=== PATIENT | male | born 1955 ===

== ENCOUNTER 2019-01-20 12:35 | Observation (INO) | payer MEDICAID ==
[2019-01-20 12:35] VITALS: BMI 28.2
--- NOTE | 2019-01-20 14:17 | C.PDOC ---
History Of Present Illness 63 yr old male w/ hx of asthma, hld, family hx of CVA p/w LUE and LLE and L facial parathesia. He notes onset of symptoms 5d prior. No trauma or fall. No change in vision. NO hx of auto immune issues. No hx of migraines. He notes mild L sided headache w/ out any vision complaints. No yarsanism pain or jaw pain. No back pain or neck pain. No vision deficits. No unilateral weakness currently. No slurred speech or difficulty with words. No other complaints. Time Seen by Provider: 01/20/19 14:17 Chief Complaint (Nursing): Weakness/Neurological Deficit Past Medical History Vital Signs: Last Vital Signs Temp 98.3 F 01/20/19 12:39 Pulse 109 H 01/20/19 12:39 Resp 18 01/20/19 12:39 BP 158/91 H 01/20/19 12:39 Pulse Ox 100 01/20/19 12:39 Primary Care Provider: Clinic,Med Surg - Medical History PMH: Asthma Denies: Diabetes, Hepatitis, HIV, HTN, Seizures, Sexually Transmitted Disease - [facility] Procedures COLONOSCOPY (11/20/13) ESOPHAGOGASTRODUODENOSCOPY [EGD] W/CLOSED BIOPSY (11/20/13) INJECT/INFUSE NEC (11/21/13) NEBULIZER THERAPY (11/21/13) Family History: States: Unknown Family Hx - Social History Hx Alcohol Use: Yes Hx Substance Use: No - Immunization History Hx Tetanus Toxoid Vaccination: Yes Hx Influenza Vaccination: Yes Hx Pneumococcal Vaccination: No Review Of Systems Constitutional: Negative for: Fever, Chills, Sweats, Weakness, Malaise, Weight loss Eyes: Negative for: Pain, Vision Change, Conjunctivae Inflammation, Eyelid Inf lammation, Redness ENT: Negative for: Ear Pain, Ear Discharge, Nose Pain, Nose Discharge, Nose Congestion, Mouth Pain, Mouth Swelling, Throat Pain, Throat Swelling Cardiovascular: Negative for: Chest Pain, Palpitations, Orthopnea, Edema, Light Headedness Respiratory: Negative for: Cough, Shortness of Breath, Hemoptysis, SOB with Excertion, Pleuritic Pain Gastrointestinal: Negative for: Nausea, Vomiting, Abdominal Pain, Diarrhea, Constipation, Melena, Hematochezia Genitourinary: Negative for: Dysuria, Frequency, Incontinence, Hematuria Musculoskeletal: Negative for: Neck Pain, Shoulder Pain Neurological: Positive for: Numbness, Headache. Negative for: Weakness, Incoordination, Change in Speech, Confusion, Seizures, Altered Mental Status Psych: Negative for: Anxiety, Depression, Psychosis Physical Exam - Physical Exam Appears: Well, Non-toxic, No Acute Distress Skin: Normal Color, Warm, Dry Head: Atraumatic, Normacephalic Eye(s): bilateral: Normal Inspection, PERRL, EOMI Ear(s): Bilateral: Normal Nose: Normal, No Flaring, No Discharge, No Epistaxis, No Septal Hematoma Oral Mucosa: Moist Tongue: Normal Appearing, No Bite Lips: Normal Appearing Teeth: Normal Dentition Gingiva: Normal Appearing Throat: Normal, No Erythema, No Exudate, No Drooling, No Mass Neck: Normal, Normal ROM, Supple, Other (no meningeal signs) Lymphatic: Normal Exam, No Adenopathy Chest: Symmetrical Cardiovascular: Rhythm Regular Respiratory: Normal Breath Sounds Gastrointestinal/Abdominal: Normal Exam, Soft, No Tenderness, No Organomegaly, No Mass, No Distention, No Guarding Back: Normal Inspection, No CVA Tenderness, No Vertebral Tenderness Extremity: Normal ROM, No Tenderness, No Pedal Edema, Other (b/l UE and LE 5/5 strenght. good sensation b/l) Extremity: Bilateral: Atraumatic, Hips Non-Tender, No Pedal Edema, Pelvis-Stable Neurological/Psych: Oriented x3, Normal Speech, Normal Cognition, Normal Cranial Nerves, No Cerebellar Signs, Normal Motor, Normal Sensation, Normal Reflexes Gait: Steady Other Neurological Findings: No Facial Palsy Extremity: Right: No Drift, Left: No Drift, Upper: No Drift, Lower: No Drift ED Course And Treatment - Laboratory Results Result Diagrams: 01/20/19 15:13 01/20/19 15:13 O2 Sat by Pulse Oximetry: 100 Medical Decision Making Medical Decision Makin yr old male w/ family hx of CVA, HLD p/w L sided parathesias and ALFARO. No eye related complaints. NO worst ALFARO of life or sudden in onset. No meningeal signs. Likely atypical migraine vs stroke pending imaging, labs [id number] possible crhonic infarct on ct appreciate consult w/ Dr. Richardson: to admit to her service, place consult order to Dr. Gupta pt in NAD, agreeable to plan Disposition - Disposition Disposition: HOSPITALIZED Disposition Time: 18:16 Condition: STABLE - Clinical Impression Clinical Impression: Numbness and tingling
[2019-01-20] MEDS ORDERED: Sodium Chloride 0.9% 1,000 ML IV ONE (14:55)
[2019-01-20 15:20] LABS: BASO % 0.4 % (0.0-2.0); EOS # 1.1 K/uL (0.0-0.7); EOS % 12.8 % (0.0-4.0); HEMOGLOBIN 15.8 g/dL (12.0-18.0); LYMPH % 33.5 % (20.0-40.0); MEAN CELL VOLUME 93.8 fL (80.0-94.0); MEAN CORPUSCULAR HEMOGLOBIN 33.1 pg (27.0-31.0); MEAN CORPUSCULAR HGB CONC 35.3 g/dL (33.0-37.0); MEAN PLATELET VOLUME 7.4 fL (7.2-11.7); MONO # 0.6 K/uL (0.0-0.8); MONO % 6.8 % (0.0-10.0); NEUT # 4.2 K/uL (1.8-7.0); NEUT % 46.5 % (50.0-75.0); NRBC % 0.1 % (0.0-2.0); RBC 4.76 Mil/uL (4.40-5.90); RED CELL DISTRIBUTION WIDTH 13.4 % (11.5-14.5)
[2019-01-20 15:38] LABS: ALB/GLOB RATIO 1.4 (1.0-2.1); ALBUMIN 4.7 g/dL (3.5-5.0); ALT/SGPT 29 U/L (21-72); AST/SGOT 36 U/L (17-59); BLOOD UREA NITROGEN 13 mg/dL (9-20); CALCIUM 9.9 mg/dl (8.6-10.4); GFR NON-AFRICAN AMERICAN > 60
--- NOTE | 2019-01-20 17:48 | CT ---
Date of service: 01/20/2019 PROCEDURE: CT HEAD WITHOUT CONTRAST. HISTORY: Left-sided paresthesias COMPARISON: None available. TECHNIQUE: Axial computed tomography images were obtained through the head/brain without intravenous contrast. Radiation dose: Total exam DLP = 1165.13 mGy-cm. This CT exam was performed using one or more of the following dose reduction techniques: Automated exposure control, adjustment of the mA and/or kV according to patient size, and/or use of iterative reconstruction technique. FINDINGS: HEMORRHAGE: No acute parenchymal, subarachnoid or extra-axial hemorrhage. BRAIN: Minimal chronic periventricular white matter ischemic changes are present. 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 Note that the possibility of a small hyperacute infarct cannot be excluded and there is any concern, consider follow-up MRI the urgency of which should be based on clinical correlation. Mild-moderate generalized volume loss.. VENTRICLES: No obstructive hydrocephalus. CALVARIUM: Unremarkable. PARANASAL SINUSES: Minor mucosal thickening seen within the sphenoid sinus, several ethmoid air cells and left maxillary antrum MASTOID AIR CELLS: Unremarkable as visualized. No inflammatory changes. OTHER FINDINGS: None. IMPRESSION: Minimal chronic periventricular white matter ischemic changes are present. 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 Note that the possibility of a small hyperacute infarct cannot be excluded and there is any concern, consider follow-up MRI the urgency of which should be based on clinical correlation. Mild-moderate generalized volume loss..
[2019-01-20 20:37] VITALS: RESP 20
[2019-01-20] MEDS ORDERED: Arformoterol 15 mcg/2 ml Inh Sol INH SCH (22:00)
[2019-01-21] MEDS ORDERED: Budesonide 0.5 mg/2 ml Inhal Susp UD INH SCH (08:00)
--- NOTE | 2019-01-21 09:28 | MRI ---
Date of service: 01/21/2019 PROCEDURE: MRI BRAIN WITHOUT CONTRAST HISTORY: numbness COMPARISON: Comparison is made to the previous CT dated 01/20/2019 TECHNIQUE: Multiplanar, multisequence MR images of the brain were obtained without intravenous contrast enhancement. FINDINGS: HEMORRHAGE: None DWI: No evidence of an acute or early subacute infarction. BRAIN PARENCHYMA: No mass effect or edema. There mild the volume loss noted. There are few scattered nonspecific small foci of hyperintense T2 FLAIR signal noted in the white matter likely represent mild chronic microvascular ischemic changes. VENTRICLES: Unremarkable. No hydrocephalus. CRANIUM: Unremarkable. ORBITS: Grossly unremarkable. PARANASAL SINUSES/MASTOIDS: Mild mucosal thickening seen in the paranasal sinuses. VASCULAR SYSTEM: Skull base flow voids intact. OTHER FINDINGS: None. IMPRESSION: No evidence of acute intracranial hemorrhage or acute infarction. Mild volume loss and presumed mild chronic microvascular ischemic changes.
--- NOTE | 2019-01-21 14:47 | CP.PCM.CON ---
History of Present Illness - History of Present Illness History of Present Illness: Neurology consult dictated. 63 yr old woman with syncope and now normal MRI Brain, who has a normal neurological exam. Plan: 1. Physical therapy, [facility] outpatient. 2. No further recommendations. Dr. kaiser Neurology Past Patient History - Infectious Disease Hx of Infectious Diseases: None - Past Social History Smoking Status: Light Smoker < 10 Cigarettes Daily - CARDIAC Hx Hypertension: No - PULMONARY Hx Asthma: Yes - NEUROLOGICAL Hx Seizures: No - HEMATOLOGICAL/ONCOLOGICAL Hx Human Immunodeficiency Virus (HIV): No - GENITOURINARY/GYNECOLOGICAL Hx Sexually Transmitted Disorders: No - PSYCHIATRIC Hx Substance Use: No - SURGICAL HISTORY Hx Surgeries: No - ANESTHESIA Hx Anesthesia: No Meds Allergies/Adverse Reactions: Allergies Allergy/AdvReac Type Severity Reaction Status Date / Time No Known Allergies Allergy Verified 05/05/18 12:05 - Medications Medications: Current Medications Arformoterol Tartrate (Brovana) 15 mcg INH RQ12@1000,2200 [facility] Budesonide (Pulmicort Respules) 0.5 mg INH RQ12 [facility] Last Admin: 01/21/19 09:14 Dose: 0.5 mg Heparin Sodium (Porcine) (Heparin) 5,000 units SC Q12 [facility] Last Admin: 01/21/19 10:50 Dose: 5,000 units Loratadine (Claritin) 10 mg PO DAILY [facility] Last Admin: 01/21/19 10:49 Dose: 10 mg Rosuvastatin Calcium (Crestor) 10 mg PO HS [facility] Last Admin: 01/20/19 22:03 Dose: Not Given Results - Vital Signs Recent Vital Signs: Last Vital Signs Temp 97.8 F 01/21/19 07:00 Pulse 68 01/21/19 09:17 Resp 20 01/21/19 07:00 BP 107/64 01/21/19 07:00 Pulse Ox 98 01/21/19 12:00 - Labs Result Diagrams: 01/20/19 15:13 01/20/19 15:13 Labs: Laboratory Results - last 24 hr 01/20/19 01/20/19 15:13 15:13 WBC 9.0 RBC 4.76 Hgb 15.8 Hct 44.6 MCV 93.8 MCH 33.1 H MCHC 35.3 RDW 13.4 Plt Count 271 MPV 7.4 Neut % (Auto) 46.5 L Lymph % (Auto) 33.5 Davis % (Auto) 6.8 Eos % (Auto) 12.8 H Baso % (Auto) 0.4 Neut # (Auto) 4.2 Lymph # (Auto) 3.0 Davis # (Auto) 0.6 Eos # (Auto) 1.1 H Baso # (Auto) 0.0 Sodium 139 Potassium 4.2 Chloride 102 Carbon Dioxide 23 Anion Gap 18 BUN 13 Creatinine 0.9 Est GFR ( Amer) > 60 Est GFR (Non-Af Amer) > 60 Random Glucose 78 Calcium 9.9 Magnesium 2.0 Total Bilirubin 0.7 AST 36 ALT 29 Alkaline Phosphatase 100 Total Protein 8.0 Albumin 4.7 Globulin 3.3 Albumin/Globulin Ratio 1.4
[2019-01-21 16:48] VITALS: BP 121/74; PULSE 71; TEMP 98.4
[2019-01-22 15:28] VITALS: O2SAT 100
== END 2019-01-21 17:24 | disposition home or self-care (01) ==
LOC: C.ER 12:35 → C.9E 18:14 → C.6T 19:32
PROVIDERS: ADMIT Internal Medicine; ATTEND Internal Medicine
DX: R20.0 Anesthesia of skin (principal); R20.2 Paresthesia of skin; E78.5 Hyperlipidemia, unspecified; J45.909 Unspecified asthma, uncomplicated; F17.210 Nicotine dependence, cigarettes, uncomplicated; Z79.899 Other long term (current) drug therapy; Z82.3 Family history of stroke
CPT/HCPCS: 70450; 70551; 80053; 83735; 85025; 94640; 96374; 99285; G0378; J1644; J2765; J7030